=== PATIENT | male | born 1955 | race Caucasian/White ===

== ENCOUNTER → 2020-05-02 10:03 | Outpatient (CLI) | payer OTHER, SELFPAY ==
[2020-05-02 11:09] LABS: COVID19 -Nasal RAPID Negative (Negative)
== END ==
PROVIDERS: PCP Physician Assistant; Visit Provider Physician Assistant
DX: Z20.822 Contact with and (suspected) exposure to COVID-19 (principal)
CPT/HCPCS: 87635

== ENCOUNTER 2020-05-05 08:18 | Day surgery (SDC) | payer OTHER, SELFPAY ==
[2020-05-05] MEDS: PROPARACAINE 0.5% OPHTH SOL 2 DROPS EYE-OP (08:46)
[2020-05-05] MEDS: CATARACT EYE COMPOUND (10 DROPS/SYRINGE) 3 DROPS EYE-OP (08:47)
[2020-05-05 08:55] VITALS: BP 125/72; PULSE 62; RESP 16; TEMP 36.4; O2SAT 99; BMI 27.5
--- NOTE | 2020-05-05 09:01 | PM.PREOP ---
Pre-operative Note Interval Note History & Physical reviewed/Exam performed by Physician: Yes Changes to H&P: No
--- NOTE | 2020-05-05 09:01 | PM.OP.1 ---
Operative Date/Time/Diagnoses Pre-op diagnosis: Nuclear cataract right eye Procedure & Clinicians Procedure: Cataract Surgery Same procedure as scheduled: Yes Surgeon: Oskar Soto Anesthesia Type: MAC +/- and Sedation Operative Notes Procedure in detail: Patient brought to the operating suite. Tetracaine drops placed in the right eye. Patient was prepped and draped in sterile manner. Wire lid speculum was placed in the eye. Betadine drops were placed on the eye. This was irrigated. Lidocaine jelly was placed on the eye. A paracentesis port was created with a side-port blade. 0.1 mL 1% preservative free lidocaine was injected into the anterior chamber. The anterior chamber was deepened with viscoelastic. 2.6 mm keratome was used to create a temporal clear corneal incision. Cystotome and Utrata forceps were used to create continuous tear capsulorrhexis. Balanced salt solution was used to hydro dissect the nucleus. The phacoemulsification handpiece was inserted and the nucleus was removed using the stop and chop technique. The irrigation aspiration handpiece was inserted and the remaining cortex was removed. Anterior chamber was deepened with viscoelastic. An Mascorro ZCB00 intraocular lens with a power of 21.0 was injected into the capsular bag. Irrigation aspiration handpiece was inserted and the remaining viscoelastic was removed. Incision was hydrated with balanced salt solution and found to be leak free with pressure with Weck-Audrey sponges. 0.1 mL Vigamox injected anterior chamber. 0.3 mL Kenalog 10 mg was injected subconjunctivally. Lid speculum was removed. The patient left the operating room in excellent condition. Complications: none Post-operative Condition: stable Disposition: same day surgery
[2020-05-05] MEDS: TRIAMCINOLONE 50 MG/5 ML VIAL INJ (09:21)
[2020-05-05] MEDS: CHONDROIDTIN/SOD HYALURONATE 1.05 ML SYRINGE INTRAOCULA (09:22)
[2020-05-05] MEDS: MOXIFLOXACIN INJ 5 MG/ML VIAL EYE-OP (09:22)
[2020-05-05] MEDS: BALANCED SALT IRRIG SOLN NO.2 500 ML, EPINEPHrine 1 MG IRR (09:22)
[2020-05-05] MEDS: PHENYLEPHRINE/LIDOCAINE VIAL (OR) 0.2 ML EYE-OP (09:22)
[2020-05-05] MEDS: TETRACAINE 0.5% OPHTH DROPS 4 ML 2 DROPS EYE-OP (09:23)
[2020-05-05] MEDS: LIDOCAINE JELLY 2% 5 ML 1 APPLIC TOP (09:23)
[2020-05-05 09:36] VITALS: BP 120/73; PULSE 63; RESP 16; TEMP 36.8; O2SAT 99
[2020-05-05 09:39] VITALS: BP 120/73; PULSE 63; RESP 16; TEMP 36.8; O2SAT 99
== END 2020-05-05 09:50 | disposition home or self-care (01) ==
PROVIDERS: PCP Student in an Organized Health Care Education/Training Program; Referring Provider Ophthalmology; Visit Provider Ophthalmology
PROC: (CPT 66984; principal; 2020-05-05 10:15)
DX: H25.11 Age-related nuclear cataract, right eye (principal)
CPT/HCPCS: 66984; J0171; J2250; J3301

== ENCOUNTER 2023-01-31 16:27 | Emergency (ER) | payer OTHER, SELFPAY ==
[2023-01-31 16:30] VITALS: BP 171/82; PULSE 77; RESP 18; O2SAT 97; BMI 26.9
[2023-01-31] MEDS: LIDOCAINE 2% (GLYDO) 6 ML GEL TOP (17:16)
--- NOTE | 2023-01-31 17:18 | ED.MALEGU ---
HPI - Male Genitourinary General Chief complaint: Urogenital-Male Stated complaint: unable to void Time Seen by Provider: 01/31/23 16:44 Source: patient Mode of arrival: Ambulatory History of Present Illness HPI Narrative: 67-year-old male with history of BPH presents for inability to urinate since 2:00 a.m.. Takes daily Flomax. Patient reporting significant suprapubic fullness and discomfort. Benjamin placed with drainage of 800 cc of clear yellow urine. Patient reported immediately relief after placement of Benjamin. Related Data Home Medications Medication Instructions Recorded Confirmed tamsulosin 0.4 mg capsule (Flomax) 0.4 mg PO BEDTIME 05/05/20 05/05/20 Allergies Allergy/AdvReac Type Severity Reaction Status Date / Time No Known Drug Allergies Allergy Verified 05/05/20 08:44 Review of Systems Review of Systems Narrative: Negative except as noted above Patient History Social History household members: spouse Smoking Status: Never smoker Smoking Status: Never smoker alcohol intake frequency: holidays/special occasions only Substance Use Type: does not use Exam Initial Vital Signs Initial Vital Signs: Vital Signs Pulse Rate 77 01/31/23 16:30 Respiratory Rate 18 01/31/23 16:30 Blood Pressure 171/82 H 01/31/23 16:30 Pulse Oximetry 97 01/31/23 16:30 Oxygen Delivery Method Room Air 01/31/23 16:30 Const: Awake, alert, in distress Eyes: PERRL, EOMI, conjunctiva normal ENT: Atraumatic, dentition normal, mucous membranes moist Cardiac: regular rate, regular rhythm RESP: unlabored, clear bilaterally, no wheezing GI: Suprapubic fullness, no rebound, no guarding MSK: Atraumatic, full range of motion, pulses equal Skin: Warm, Dry, intact, no rashes Neuro: AO x3, CN II-XII grossly intact, moves all extremities Psych: affect normal, mood normal, not suicidal, not homicidal Course Course Course Narrative: Inability to urinate, history of BPH. Benjamin placed with 800 cc of clear yellow urine drained from bladder. Discharged with Benjamin care instructions. Urology referral provided Orders Ordered: Discontinued Medications Lidocaine HCl (Lidocaine 2% (Glydo) 6 Ml Gel) 6 ml TOP NOW ONE Stop: 01/31/23 16:43 Last Admin: 01/31/23 17:16 Dose: 6 ml Documented By: GREGG Vital Signs Vital signs: Vital Signs - 8 hr 01/31/23 16:30 Pulse Rate 77 Respiratory Rate 18 Blood Pressure 171/82 H Pulse Oximetry 97 Oxygen Delivery Method Room Air MDM - Male Genitourinary Differential Diagnosis Differential diagnosis: Likely urinary tract infection, acute retention of urine and inguinal hernia Lab Data Labs: Lab Results 01/31/23 Range/Units 17:04 Urine Color Yellow Urine Appearance Clear Urine pH 5.5 (4.5-8.0) Ur Specific [place] 1.010 (1.000-1.035) Urine Protein Negative (Negative) Urine Glucose (UA) Negative (Negative) g/dL Urine Ketones Negative (NEGATIVE) Urine Occult Blood Trace-intact (Negative) Urine Nitrate Negative (Negative) Urine Bilirubin Negative (NEGATIVE) Urine Urobilinogen 0.2 (0.2) E.U./dL Ur Leukocyte Esterase Negative (NEGATIVE) Urine RBC 1-5/hpf (0-5/HPF) Urine WBC None seen (0-5/HPF) Ur Squamous Epith Cells None seen (0-5/HPF) Urine Bacteria None seen (None) Ur Culture Indicated? Cult not indicated Urine Dip Bedside Urine Glucose Negative Bedside Urine Bilirubin - Negative Bedside Urine Ketone - Negative Urine Specific [place] 1.015 Bedside Urine Occult Blood +/- Bedside Urine Protein - Negative Bedside Urine Urobilinogen - Negative Bedside Urine Nitrite - Negative Bedside Urine Leukocytes - Negative Esterase Discharge Plan Departure Patient Disposition: Home Clinical Impression: Acute retention of urine Instructions: How to Care for Your Benjamin Catheter -- Male, DI for Urinary Retention in Men Prescriptions: No Action tamsulosin [Flomax] 0.4 mg Capsule 0.4 mg PO BEDTIME Referrals: Alisha Irby MD [Primary Care Provider] - Mani Dow MD [Physician] - Stand Alone Forms: Patient Portal/API
[2023-01-31 17:32] LABS: Appearance Urine UA CLEAR; Bilirubin Urine UA NEGATIVE (NEGATIVE); Color Urine UA YELLOW; Glucose Urine UA NEGATIVE (Negative); Ketones Urine UA NEGATIVE (NEGATIVE); Leukocyte Esterase Urine UA NEGATIVE (NEGATIVE); Nitrite Urine UA NEGATIVE (Negative); Occult Blood Urine UA TRACE-INTACT (Negative); Protein Urine UA NEGATIVE (Negative); Urobilinogen Urine UA 0.2 E.U./dL (0.2); pH Urine UA 5.5 (4.5-8.0)
[2023-01-31 17:54] LABS: Bacteria Urine None Seen; Culture Indicated Urine Cult Not Indicated; RBC Urine 1-5/HPF (0-5/HPF); Squamous Epithelial Cell Urine None Seen (0-5/HPF); WBC Urine None Seen (0-5/HPF)
[2023-01-31 18:05] VITALS: BP 161/71; PULSE 88; O2SAT 99
== END 2023-01-31 18:06 | disposition home or self-care (01) ==
PROVIDERS: Emergency Provider Emergency Medicine; PCP Student in an Organized Health Care Education/Training Program
DX: R33.9 Retention of urine, unspecified (principal)
CPT/HCPCS: 51702; 51798; 81001; 81003; 99283

== ENCOUNTER 2023-02-25 08:37 | Emergency (ER) | payer OTHER, SELFPAY ==
[2023-02-25 08:49] VITALS: BP 140/83; PULSE 78; O2SAT 97
[2023-02-25 08:51] VITALS: BP 140/83; PULSE 86; RESP 16; TEMP 36.5; O2SAT 98; BMI 26.2
[2023-02-25 09:00] VITALS: BP 123/60; PULSE 71; O2SAT 98
[2023-02-25] MEDS: LIDOCAINE 2% (GLYDO) 6 ML GEL TOP (09:08)
--- NOTE | 2023-02-25 09:08 | ED.MALEGU ---
HPI - Male Genitourinary General Chief complaint: Urogenital-Male Stated complaint: unable to urinate/Cath removed T-1 Time Seen by Provider: 02/25/23 09:07 Source: patient Mode of arrival: Ambulatory Limitations: no limitations History of Present Illness HPI Narrative: 67-year-old male with history of urinary retention urology yesterday and [place]. Patient states they removed his catheter he had been in for about 30 days, weight about 4 hours he was not told to drink anything so did not have anything to drink in only had 100 mL on return to the office. Patient states he did not void at any point but had some dribbling throughout. He is continued to dribble urine throughout the night but had increasing abdominal/suprapubic pain and fullness. Patient denies fevers or chills. He had a Benjamin catheter placed here is much more comfortable at this time. Denies any back or flank pain. No nausea or vomiting. No diarrhea constipation. He states he is on tamsulosin daily. States he has been told his prostate is quite large. Denies any other issues. Patient has no known drug allergies. Discussed no recent UTIs or other changes when he was evaluated for his prior retention. Did try to get in with Dr. Dow with Urology locally would prefer to follow with them. Related Data Home Medications Medication Instructions Recorded Confirmed tamsulosin 0.4 mg capsule (Flomax) 0.4 mg PO BEDTIME 05/05/20 05/05/20 Allergies Allergy/AdvReac Type Severity Reaction Status Date / Time No Known Drug Allergies Allergy Verified 02/25/23 08:55 Review of Systems Review of Systems ROS Unobtainable: All systems reviewed & are unremarkable except as noted in HPI and below Patient History Social History household members: spouse Smoking Status: Never smoker Smoking Status: Never smoker alcohol intake frequency: holidays/special occasions only Substance Use Type: does not use Exam Narrative Exam Narrative: GENERAL: Alert and oriented x three, well-appearing male moderate distress. Patient much more comfortable after Benjamin catheter placed. HEENT: Head normocephalic, atraumatic, EOMI, pupils reactive, face symmetric, moist mucous membranes NECK: Supple, full range of motion CARDIOVASCULAR: Regular rate and rhythm without murmurs, rubs or gallops. RESPIRATORY: Breath sounds equal bilaterally, no wheezes rales or rhonchi. ABDOMEN: Soft, nontender. Normoactive bowel sounds all 4 quadrants. No guarding or rebound, rigidity, no mass : No CVA tenderness. Male: normal external examination, Benjamin catheter placed by nursing draining clear yellow urine in place, no penile discharge or lesions, testicles non-tender, cremasteric reflex intact, no inguinal hernias noted. EXTREMITIES: Normal range of motion, normal gait. Neurovascularly intact NEUROLOGICAL: Cranial nerves II through XII grossly intact. Moving all extremities SKIN: Warm, dry, no petechiae, no rashes or lesions. Initial Vital Signs Initial Vital Signs: Vital Signs Pulse Rate 78 02/25/23 08:49 Blood Pressure 140/83 02/25/23 08:49 Pulse Oximetry 97 02/25/23 08:49 Course Orders Ordered: ED Orders 02/25/23 09:15 UA Complete [Urinalysis and Microscopic] Stat Discontinued Medications Lidocaine HCl (Lidocaine 2% (Glydo) 6 Ml Gel) 6 ml TOP NOW ONE Stop: 02/25/23 09:07 Last Admin: 02/25/23 09:08 Dose: 6 ml Documented By: RB Vital Signs Vital signs: Vital Signs - 8 hr 02/25/23 09:31 Temperature 98.1 F MDM - Male Genitourinary Lab Data Labs: Lab Results 02/25/23 02/25/23 02/25/23 Range/Units 09:15 09:15 09:15 Urine Color Yellow Urine Appearance Clear Urine pH 7.0 (4.5-8.0) Ur Specific [place] 1.025 (1.000-1.035) Urine Protein Negative (Negative) Urine Glucose (UA) Negative (Negative) g/dL Urine Ketones Negative (NEGATIVE) Urine Occult Blood Negative (Negative) Urine Nitrate Negative (Negative) Urine Bilirubin Negative (NEGATIVE) Urine Urobilinogen 0.2 (0.2) E.U./dL Ur Leukocyte Esterase Negative (NEGATIVE) Urine RBC 0-1/hpf Cancelled (0-5/HPF) Urine WBC 0-1/hpf Cancelled (0-5/HPF) Ur Squamous Epith Cells 0-1 /hpf (0-5/HPF) Ur Transition Epith Cell Ur Renal Epithelial Cell Calcium Oxalate Crystal Uric Acid Crystals Triple Phos Crystals Other Crystals Amorphous Sediment Urine Bacteria (None) Hyaline Casts Granular Casts RBC Casts WBC Casts Other Casts Urine Mucus Urine Trichomonas Urine Yeast Urine Sperm Ur Culture Indicated? Micro UA Comment 02/25/23 02/25/23 02/25/23 Range/Units 09:15 09:15 09:15 Urine Color Urine Appearance Urine pH (4.5-8.0) Ur Specific [place] (1.000-1.035) Urine Protein (Negative) Urine Glucose (UA) (Negative) g/dL Urine Ketones (NEGATIVE) Urine Occult Blood (Negative) Urine Nitrate (Negative) Urine Bilirubin (NEGATIVE) Urine Urobilinogen (0.2) E.U./dL Ur Leukocyte Esterase (NEGATIVE) Urine RBC (0-5/HPF) Urine WBC (0-5/HPF) Ur Squamous Epith Cells Cancelled (0-5/HPF) Ur Transition Epith Cell Cancelled Ur Renal Epithelial Cell Cancelled Calcium Oxalate Crystal Cancelled Uric Acid Crystals Cancelled Triple Phos Crystals Cancelled Other Crystals Cancelled Amorphous Sediment 3+ Cancelled Urine Bacteria None seen Cancelled (None) Hyaline Casts Cancelled Granular Casts Cancelled RBC Casts Cancelled WBC Casts Cancelled Other Casts Cancelled Urine Mucus Cancelled Urine Trichomonas Cancelled Urine Yeast Cancelled Urine Sperm Cancelled Ur Culture Indicated? Cult not indicated Micro UA Comment 02/25/23 Range/Units 09:15 Urine Color Urine Appearance Urine pH (4.5-8.0) Ur Specific [place] (1.000-1.035) Urine Protein (Negative) Urine Glucose (UA) (Negative) g/dL Urine Ketones (NEGATIVE) Urine Occult Blood (Negative) Urine Nitrate (Negative) Urine Bilirubin (NEGATIVE) Urine Urobilinogen (0.2) E.U./dL Ur Leukocyte Esterase (NEGATIVE) Urine RBC (0-5/HPF) Urine WBC (0-5/HPF) Ur Squamous Epith Cells (0-5/HPF) Ur Transition Epith Cell Ur Renal Epithelial Cell Calcium Oxalate Crystal Uric Acid Crystals Triple Phos Crystals Other Crystals Amorphous Sediment Urine Bacteria (None) Hyaline Casts Granular Casts RBC Casts WBC Casts Other Casts Urine Mucus Urine Trichomonas Urine Yeast Urine Sperm Ur Culture Indicated? Cancelled Micro UA Comment Cancelled Urine Dip Bedside Urine Glucose Negative Bedside Urine Bilirubin - Negative Bedside Urine Ketone - Negative Urine Specific [place] 1.015 Bedside Urine Occult Blood +/- Bedside Urine pH 6.5 Bedside Urine Protein - Negative Bedside Urine Urobilinogen - Negative Bedside Urine Nitrite - Negative Bedside Urine Leukocytes - Negative Esterase MDM Narrative Medical decision making narrative: 67-year-old male with acute on chronic urinary retention with no BPH. Had unsuccessful voiding trial yesterday been dribbling since then with increasing abdominal discomfort. Patient had Benjamin catheter placed here immediately had urine out and feels much improved. 500+mL immediately. Urine appears clear but we will send for evaluation. Blood is present but likely secondary to catheter placement. Discussed with patient will hold off on any antibiotics and only start if patient has a having positive culture. Discharge Plan Departure Patient Disposition: Home Clinical Impression: Acute on chronic urinary retention Instructions: DI for Urinary Retention in Men Activity Restrictions/Additional Instructions: Follow-up with Urology, referral is included for Dr. Dow. Please call their office Monday morning. If you can not get in with Urology locally there is also options available at [facility] and [facility]. Continue to take your tamsulosin daily. Make sure you are having regular soft bowel movements and no constipation. You are constipated take a stool softener such as Colace or Dulcolax and drink plenty of fluids. Please return for fevers new or worsening abdominal back or flank pain, vomiting, difficulty with bowel movements, lightheadedness or passing out or other new or concerning changes. Prescriptions: No Action tamsulosin [Flomax] 0.4 mg Capsule 0.4 mg PO BEDTIME Referrals: Mani Dow MD [Physician] - Kay Martin MD [Primary Care Provider] - Stand Alone Forms: Patient Portal/API
[2023-02-25 09:31] VITALS: TEMP 36.7
[2023-02-25 09:31] LABS: Appearance Urine UA CLEAR; Bilirubin Urine UA NEGATIVE (NEGATIVE); Color Urine UA YELLOW; Glucose Urine UA NEGATIVE (Negative); Ketones Urine UA NEGATIVE (NEGATIVE); Leukocyte Esterase Urine UA NEGATIVE (NEGATIVE); Nitrite Urine UA NEGATIVE (Negative); Occult Blood Urine UA NEGATIVE (Negative); Protein Urine UA NEGATIVE (Negative); Specific Gravity Urine UA 1.025 (1.000-1.035); Urobilinogen Urine UA 0.2 E.U./dL (0.2)
[2023-02-25 09:38] LABS: Amorphous Sediment Urine 3+; Bacteria Urine None Seen; Culture Indicated Urine Cult Not Indicated; RBC Urine 0-1/HPF (0-5/HPF); Squamous Epithelial Cell Urine 0-1 /HPF (0-5/HPF); WBC Urine 0-1/HPF (0-5/HPF)
== END 2023-02-25 09:32 | disposition home or self-care (01) ==
PROVIDERS: Emergency Provider Emergency Medicine; PCP Family Medicine
DX: R33.9 Retention of urine, unspecified (principal)
CPT/HCPCS: 51702; 51798; 81001; 81003; 99283

== ENCOUNTER → 2023-03-21 15:50 | Outpatient (CLI) | payer OTHER, SELFPAY | PROVIDERS: PCP Family Medicine; Visit Provider Urology | DX: R34 Anuria and oliguria (principal) | CPT/HCPCS: 87086 ==

== ENCOUNTER → 2023-04-11 12:50 | Outpatient (CLI) | payer OTHER, SELFPAY | PROVIDERS: PCP Family Medicine; Visit Provider Urology | DX: R39.9 Unspecified symptoms and signs involving the genitourinary system (principal) | CPT/HCPCS: 87077; 87086; 87186 ==

== ENCOUNTER → 2023-05-11 13:53 | Outpatient (CLI) | payer OTHER, SELFPAY | PROVIDERS: PCP Family Medicine; Visit Provider Urology | DX: N39.0 Urinary tract infection, site not specified (principal); R33.8 Other retention of urine; R39.9 Unspecified symptoms and signs involving the genitourinary system; Z97.8 Presence of other specified devices | CPT/HCPCS: 51702; 87086 ==

== ENCOUNTER → 2023-06-08 15:09 | Outpatient (CLI) | payer OTHER, SELFPAY | PROVIDERS: PCP Family Medicine; Visit Provider Urology | DX: N39.0 Urinary tract infection, site not specified (principal); N32.0 Bladder-neck obstruction; R33.9 Retention of urine, unspecified; R39.9 Unspecified symptoms and signs involving the genitourinary system; Z97.8 Presence of other specified devices; Z84.2 Family history of other diseases of the genitourinary system | CPT/HCPCS: 51702; 87077; 87086; 87186 ==

== ENCOUNTER → 2023-06-23 15:50 | Outpatient (CLI) | payer OTHER, SELFPAY ==
[2023-06-23 15:56] LABS: Appearance Urine UA CLEAR; Bilirubin Urine UA NEGATIVE (NEGATIVE); Color Urine UA YELLOW; Glucose Urine UA NEGATIVE (Negative); Ketones Urine UA NEGATIVE (NEGATIVE); Leukocyte Esterase Urine UA NEGATIVE (NEGATIVE); Nitrite Urine UA NEGATIVE (Negative); Occult Blood Urine UA NEGATIVE (Negative); Protein Urine UA NEGATIVE (Negative); Specific Gravity Urine UA <=1.005 (1.000-1.035); Urobilinogen Urine UA 0.2 E.U./dL (0.2); pH Urine UA 6.5 (4.5-8.0)
[2023-06-23 16:15] LABS: Bacteria Urine None Seen; Culture Indicated Urine Cult Not Indicated; RBC Urine None Seen (0-5/HPF); Squamous Epithelial Cell Urine None Seen (0-5/HPF); Urine Volume 10mL (spun); WBC Urine None Seen (0-5/HPF)
== END ==
PROVIDERS: PCP Family Medicine; Visit Provider Urology
DX: N39.0 Urinary tract infection, site not specified (principal); R33.9 Retention of urine, unspecified; R39.9 Unspecified symptoms and signs involving the genitourinary system
CPT/HCPCS: 81001

== ENCOUNTER → 2023-07-07 10:58 | Outpatient (CLI) | payer OTHER, SELFPAY | PROVIDERS: PCP Family Medicine; Visit Provider Urology | DX: N40.1 Benign prostatic hyperplasia with lower urinary tract symptoms (principal); R33.9 Retention of urine, unspecified; N39.0 Urinary tract infection, site not specified; Z97.8 Presence of other specified devices; Z84.2 Family history of other diseases of the genitourinary system | CPT/HCPCS: 51702; 87077; 87086; 87147; 87186 ==

== ENCOUNTER 2023-07-20 09:27 | Emergency (ER) | payer OTHER, SELFPAY ==
[2023-07-20 10:07] VITALS: BP 156/82; PULSE 82; RESP 18; TEMP 36.9; O2SAT 98; BMI 27.5
--- NOTE | 2023-07-20 10:38 | ED.GENADULT ---
HPI - General Adult General Chief complaint: Urogenital-Male Stated complaint: cath stopped working t-1, pt in pain Time Seen by Provider: 07/20/23 10:27 Source: patient Mode of arrival: Ambulatory History of Present Illness HPI narrative: Patient is a 68-year-old male. Has a urinary catheter in place for the past several months secondary to an enlarged prostate. He was scheduled to have surgery in the next couple weeks. He has a catheter in place that was placed 2 weeks ago. He states the catheter stops draining yesterday. Is having quite a bit of abdominal distention. Related Data Home Medications Medication Instructions Recorded Confirmed tamsulosin 0.4 mg capsule (Flomax) 0.8 mg PO BEDTIME 03/21/23 06/23/23 Allergies Allergy/AdvReac Type Severity Reaction Status Date / Time No Known Drug Allergies Allergy Verified 07/20/23 10:07 Review of Systems Constitutional Constitutional: Reports system reviewed and no additional complaints, except as documented Gastrointestinal Gastrointestinal: Reports system reviewed and no additional complaints, except as documented Genitourinary Genitourinary: Reports system reviewed and no additional complaints, except as documented Patient History Medical History BPH loc w urin obs/LUTS Urinary retention Urinary tract infection Benjamin catheter in place Family history of prostate problems Bladder outlet obstruction Benign prostatic hyperplasia Lower urinary tract symptoms Social History household members: spouse Smoking Status: Never smoker alcohol intake: current Smoking Status: Never smoker alcohol intake frequency: holidays/special occasions only Substance Use Type: does not use Exam Initial Vital Signs Initial Vital Signs: Vital Signs Temperature 98.4 F 07/20/23 10:07 Pulse Rate 82 07/20/23 10:07 Respiratory Rate 18 07/20/23 10:07 Blood Pressure 156/82 H 07/20/23 10:07 Pulse Oximetry 98 07/20/23 10:07 Oxygen Delivery Method Room Air 07/20/23 10:07 GI Palpation: soft External: normal external exam and circumcised Course Vital Signs Vital signs: Vital Signs - 8 hr 07/20/23 10:07 Temperature 98.4 F Pulse Rate 82 Respiratory Rate 18 Blood Pressure 156/82 H Pulse Oximetry 98 Oxygen Delivery Method Room Air Medical Decision Making MDM Narrative Medical decision making narrative: By the time I evaluated the patient he had had his catheter replaced. He drained approximately 1 L of urine. Stated that he was feeling much better. Will discharge patient home with instructions to follow-up with urology Discharge Plan Departure Patient Disposition: Home Clinical Impression: Complication of Benjamin catheter Instructions: How to Care for Your Benjamin Catheter -- Male Activity Restrictions/Additional Instructions: Keep all of your scheduled follow-up appointments with Urology. Return to the emergency department for new or worsening symptoms Prescriptions: No Action tamsulosin [Flomax] 0.4 mg capsule 0.8 mg PO BEDTIME Referrals: Kay Martin MD [Primary Care Provider] - Stand Alone Forms: Patient Portal/API
== END 2023-07-20 10:52 | disposition home or self-care (01) ==
PROVIDERS: Emergency Provider Emergency Medicine; PCP Family Medicine
DX: T83.098A Other mechanical complication of other urinary catheter, initial encounter (principal)
CPT/HCPCS: 51702; 99281; 99283

== ENCOUNTER → 2023-07-26 08:15 | Outpatient (CLI) | payer OTHER, SELFPAY | PROVIDERS: PCP Family Medicine; Visit Provider Urology | DX: N40.1 Benign prostatic hyperplasia with lower urinary tract symptoms (principal); R33.9 Retention of urine, unspecified; N39.0 Urinary tract infection, site not specified | CPT/HCPCS: 87077; 87086; 87147; 87186 ==

== ENCOUNTER 2023-07-31 04:38 | Emergency (ER) | payer OTHER, SELFPAY ==
[2023-07-31 04:47] VITALS: BP 152/70; PULSE 74; RESP 18; TEMP 36.4; O2SAT 98; BMI 27.5
--- NOTE | 2023-07-31 04:54 | ED.MALEGU ---
HPI - Male Genitourinary General Chief complaint: Urogenital-Male Stated complaint: catheter not working Time Seen by Provider: 07/31/23 04:39 Source: patient Mode of arrival: Ambulatory History of Present Illness HPI Narrative: 68-year-old male with history of BPH presents for blocked Benjamin catheter. Patient states that he has burning with urination and seems to be urinating around the catheter. He is scheduled for surgery tomorrow for his BPH with Dr. Dow. Catheter has been poorly functional since yesterday morning. Related Data Home Medications Medication Instructions Recorded Confirmed tamsulosin 0.4 mg capsule (Flomax) 0.8 mg PO BEDTIME 03/21/23 07/26/23 Previous Rx's Medication Instructions Recorded ciprofloxacin HCl 500 mg tablet 500 mg PO Q12H #14 tabs 07/31/23 Allergies Allergy/AdvReac Type Severity Reaction Status Date / Time No Known Drug Allergies Allergy Verified 07/20/23 10:07 Patient History Medical History BPH loc w urin obs/LUTS Urinary retention Urinary tract infection Benjamin catheter in place Family history of prostate problems Bladder outlet obstruction Benign prostatic hyperplasia Lower urinary tract symptoms Social History household members: spouse Smoking Status: Never smoker alcohol intake: current Smoking Status: Never smoker alcohol intake frequency: holidays/special occasions only Substance Use Type: does not use Exam Initial Vital Signs Initial Vital Signs: Vital Signs Temperature 97.6 F 07/31/23 04:47 Pulse Rate 74 07/31/23 04:47 Respiratory Rate 18 07/31/23 04:47 Blood Pressure 152/70 H 07/31/23 04:47 Pulse Oximetry 98 07/31/23 04:47 Oxygen Delivery Method Room Air 07/31/23 04:47 Course Orders Ordered: ED Orders 07/31/23 05:15 UA Complete [Urinalysis and Microscopic] Stat Urine Culture Stat Vital Signs Vital signs: Vital Signs - 8 hr 07/31/23 04:47 Temperature 97.6 F Pulse Rate 74 Respiratory Rate 18 Blood Pressure 152/70 H Pulse Oximetry 98 Oxygen Delivery Method Room Air MDM - Male Genitourinary Lab Data Labs: Lab Results 07/31/23 Range/Units 05:15 Urine Color Yellow Urine Appearance Sl cloudy Urine pH 6.0 (4.5-8.0) Ur Specific [place] 1.010 (1.000-1.035) Urine Protein Negative (Negative) Urine Glucose (UA) Negative (Negative) g/dL Urine Ketones Negative (NEGATIVE) Urine Occult Blood 3+ H (Negative) Urine Nitrate Positive H (Negative) Urine Bilirubin Negative (NEGATIVE) Urine Urobilinogen 0.2 (0.2) E.U./dL Ur Leukocyte Esterase 3+ H (NEGATIVE) Urine RBC 30-100/hpf H (0-5/HPF) Urine WBC 30-100/hpf H (0-5/HPF) Ur Squamous Epith Cells 0-1 /hpf (0-5/HPF) Urine Bacteria Many (>30) H (None) Ur Culture Indicated? Specimen cultured Vol Urine Centrifuged 10ml (spun) MDM Narrative Medical decision making narrative: Blocked Benjamin catheter. Patient also complaining of significant burning around the catheter with urine leaking. Benjamin catheter replaced, drainage of approximately 700 cc of yellow urine. Urinalysis positive for nitrites, leukocyte esterase, many WBCs, many bacteria. We will treat as infection with ciprofloxacin. First dose given in emergency department and prescription sent to pharmacy of choice. Patient is scheduled for aqua ablation of his prostate tomorrow, he was advised to call his urologist office for additional recommendations as well as to notify them of his UTI. Discharge Plan Departure Patient Disposition: Home Clinical Impression: Urinary tract infection, Complication, blocked Benjamin catheter Instructions: How to Care for Your Benjamin Catheter -- Male, DI for Urinary Tract Infection (UTI) Activity Restrictions/Additional Instructions: Take the antibiotics as prescribed. Call Dr. Espinosa's office to see what they would like you to do for your urinary tract infection. Prescriptions: New ciprofloxacin HCl 500 mg tablet 500 mg PO Q12H Qty: 14 0RF No Action tamsulosin [Flomax] 0.4 mg capsule 0.8 mg PO BEDTIME Referrals: Kay Martin MD [Primary Care Provider] - Stand Alone Forms: Patient Portal/API
--- NOTE | 2023-07-31 05:06 | PC.NURSE ---
pt states his catheter has not been draining much all night, he has been urinating around the catheter. attempted to irrigate the catheter without success, catheter removed and new catheter placed without difficulty,
[2023-07-31 05:21] LABS: Bilirubin Urine UA NEGATIVE (NEGATIVE); Color Urine UA YELLOW; Glucose Urine UA NEGATIVE (Negative); Ketones Urine UA NEGATIVE (NEGATIVE); Leukocyte Esterase Urine UA 3+ (NEGATIVE); Nitrite Urine UA POSITIVE (Negative); Occult Blood Urine UA 3+ (Negative); Protein Urine UA NEGATIVE (Negative); Urobilinogen Urine UA 0.2 E.U./dL (0.2)
[2023-07-31 05:24] LABS: Appearance Urine UA SL CLOUDY
[2023-07-31 05:29] LABS: Bacteria Urine Many (>30); RBC Urine 30-100/HPF (0-5/HPF); Squamous Epithelial Cell Urine 0-1 /HPF (0-5/HPF); Urine Volume 10mL (spun); WBC Urine 30-100/HPF (0-5/HPF)
[2023-07-31 05:30] LABS: Culture Indicated Urine Specimen Cultured
[2023-07-31] MEDS: CIPROFLOXACIN 250 MG TABLET 500 MG PO (05:36)
== END 2023-07-31 05:40 | disposition home or self-care (01) ==
PROVIDERS: Emergency Provider Emergency Medicine; PCP Family Medicine
DX: N39.0 Urinary tract infection, site not specified (principal); T83.091A Other mechanical complication of indwelling urethral catheter, initial encounter
CPT/HCPCS: 81001; 87077; 87086; 87147; 87186; 99283

== ENCOUNTER 2023-08-15 07:57 | Day surgery (SDC) | payer OTHER, SELFPAY ==
[2023-06-28 10:19] VITALS: BMI 27.5
[2023-08-15] VITALS (9 sets, daily range): BP systolic 118–138; BP diastolic 62–78; PULSE 61–74; RESP 11–17; TEMP 36.2–36.6; O2SAT 96–100; BMI 27.5
--- NOTE | 2023-08-15 | PATH_ITS ---
[facility] Accession Number: [id number] No. of containers..01 Tissue . 01 Material submitted: . prostate - PROSTATE CHIPS . 01 Diagnosis: PROSTATE CHIPS (7 GRAMS), TRANSURETHRAL RESECTION: Benign prostatic hyperplasia. No evidence of malignancy. [facility] 08/22/2023 1041 Local . 01 Electronically signed: . Katherin Estrada MD, Pathologist NPI- [id number] . 01 Gross description: . Received in formalin with two identifiers and prostate chips, are multiple uriarte rubbery soft tissue fragments admixed with hemorrhagic material weighing 7 grams and aggregating to 4.6 x 3.9 x 1.7 cm. No distinct lesions are identified. The specimen is submitted entirely in cassettes A1-A6. ([id number]) /MRV 08/16/2023 1926 Local . 01 Pathologist provided ICD-10: N40.1 . 01 CPT . 751562 Specimen Comment: A courtesy copy of this report has been sent to [phone] Performed at: 01 [facility] [address] [place] [address] [address], [place], [place] [id number] MD Zev Moulton MD Phone: [phone]
[2023-08-15] MEDS: LACTATED RINGERS 1,000 ML 42 ML IV (08:40)
[2023-08-15] MEDS: ACETAMINOPHEN 325 MG TABLET 975 MG PO (09:20)
--- NOTE | 2023-08-15 09:48 | PM.PREOP ---
Pre-operative Note COVID-19 COVID-19 status: Not tested Interval Note History & Physical reviewed/Exam performed by Physician: Yes Changes to H&P: No
[2023-08-15] MEDS: CEFAZOLIN 2 GM/100 ML PREMIX 100 ML IV (09:58)
--- NOTE | 2023-08-15 10:17 | SUR.OPER ---
Lithotomy on padded OR bed, head on pillow, arms secured on padded arm boards at <90 degrees abduction. Legs secured in padded yellow fins stirrups.
--- NOTE | 2023-08-15 11:44 | PM.OP.1 ---
Procedure & Clinicians Procedure: 1. Aquablation water jet resection of prostate 2. Prostate ultrasound 3. Transurethral resection of prostate and cauterization Same procedure as scheduled: Yes Indications: This is a 68-year-old male who presented with complaints of urinary retention. He was evaluated with cystoscopy and multiple voiding trials which he failed and remained in retention. Thus were unable to do a uroflow and because of the Benjamin catheter in his national prostate symptom Score is would be invalid. Again he is in retention his prostate was measured at 90 g by prostate ultrasound. Patient reports history of normal PSAs and we have been unable to get a current PSA because of the continue his Benjamin catheter needed for his urinary retention. He presents at this time for Aquablation to relieve his benign prostatic hyperplasia and lower urinary tract symptoms/retention. Surgeon: Mani Dow Click Yes if Unassisted: Yes Anesthesia Type: General Operative Notes Findings: Findings: Urethral meatus is normal urethra is normal along its length sphincter as well coapted. The prostate exhibits trilobar obstruction with bulging into the bladder severe obstruction. Bladder exhibits severe trabeculation cellules the ureteral orifices in normal position with efflux and at the end the procedure they were intact and unaffected. The patient's verumontanum was also preserved at the end of the procedure. Patient's prostate had been measured at 90 g. At the end of the procedure the prostatic fossa was widely patent hemostasis appeared to be good and all chips appeared to be evacuated from the bladder. Total Aquablation time 8 minutes for 2 passes. A 24 Bangl[place]hi three-way hematuria catheter was placed at the end of the case with 45 cc in the balloon and just a very gentle is of traction resulting in lightly pink urine. Closure Type: not applicable Specimen(s): other (Prostate chips) Applied: catheter ([address] hematuria catheter with 45 cc in the balloon.) Estimated Blood Loss (mL): 175 Blood products transfused: none Procedure in detail: Procedure in detail: After informed consent was obtained, the patient was identified and brought to the operating room where he is placed in a supine position on the table and anesthesia was induced and maintained. Assuring an adequate level of anesthesia the patient was transitioned to the lithotomy position. At this point he was prepped. At this point ensuring an adequate level of anesthesia, time-out, after administration of antibiotics 60 cc of ultrasound gel was inserted in the rectum followed by the ultrasound probe which was attached to the ultrasound stepper which was attached to the articulating arm which was secured to the bed. The ultrasound probe was aligned and confirmation made that the prostate was centered and aligned in both the transverse and sagittal views. The bladder neck verumontanum central and transition zones were identified. At this point the patient was draped in his sterile fashion and the 24 [place]hi aqua beam handpiece was inserted through the urethra prostate and into the bladder under direct vision. Cystoscopy was performed. The scope was then backed up to the level of the external sphincter which was noted on ultrasound the level of the verumontanum which was also marked in noted on ultrasound. The aqua beam handpiece was then secured to the handpiece articulating arm which was secured to the bed. Again alignment of the aqua beam handpiece and ultrasound probe was confirmed and that they were colinear. They were also parallel then using the ultrasound it was also ensured that the aqua beam was centered within the prostate. Compression on the ultrasound probe was then performed and all anatomy was clearly seen. Again the cystoscope was retracted via the cradle and to visualize the external sphincter and verumontanum and their position once again confirmed. The cystoscope was then positioned between the external sphincter just proximal to it and the verumontanum. Confirmation was once again made that the handpiece and the ultrasound probe were aligned. Horizontal alignment of the handpiece water jet was then performed. With the jet at the 3 and 9 o'clock position. The Aquablation treatment zones were then planned using real-time ultrasound and truss to visualize the contour of the prostate the transition zone the capsule the depth of resection and the radial angles were set in the transverse view. In the sagittal view the aqua beam nozzle was identified and its position registered in the software. The bladder neck and verumontanum defining the length of resection were set and identified. The resection contours were then marked and confirmed. With the treatment plan in place the Aquablation treatment was then started following the resection contour confirmed in real time by ultrasound guidance. For the 1st pass the time was approximately 4 minutes. A 2nd pass was noted adjustments made in the contour plan and the treatments done. Again the butterfly cut at the verumontanum for sexual preservation was performed. Once this was complete the cystoscope was advanced to the end of the aqua beam handpiece and the hand piece brought out under direct vision. The resectoscope was then inserted under direct vision and the clot and bladder were irrigated with the Ellik evacuator. Then at the bladder neck going from the 3 to 9 o'clock position some of the fluffy tissue was removed and bleeding points controlled with the electrocautery. Anteriorly at the bladder neck there were bleeding points which were also controlled. At the level of the verumontanum posteriorly there was a flap remaining prostate tissue which was resected. Anteriorly at the level of the verumontanum there were a couple of bleeding sites which were cauterized. With the tissue resected the Ellik evacuator was once again employed to evacuate clot and prostate chips. Again was visualized and all points of bleeding at the bladder neck and arterial bleeding was controlled with the electrocautery. The ureteral orifices were once again visualized and they were intact and unharmed all chips had been evacuated from the bladder the vera was again intact the bladder was left full the scope was removed and the 24 [place]hi three-way hematuria catheter was inserted with the aid of a catheter guide. The bladder was once again irrigated the effluent was light pink catheter was placed the gentle traction again there were 45 cc in the balloon this was sterile water. At this point the patient was awakened having tolerated the procedure well there were no complications. The patient was transferred to the postanesthesia care unit for recovery with the three-way catheter hooked to continuous bladder irrigation and again on gentle traction Post-operative Condition: stable Disposition: PACU Plan for aftercare: Patient will be observed in the postanesthesia care unit and if he urine remains in acceptable color will be discharged to home from the PACU if not he will remain as an outpatient likely to be discharged within 23 hours.
[2023-08-15] MEDS: PHENAZOPYRIDINE 100 MG TABLET 200 MG PO (12:10)
[2023-08-15] MEDS: OXYBUTYNIN 5 MG TABLET PO (12:10)
[2023-08-15] MEDS: OXYCODONE IR 5 MG TABLET PO (13:47)
--- NOTE | 2023-08-15 14:20 | SUR.PHASEII ---
irrigation supplies with instructions given. Pt and verbalized understanding. catheter plugged at irrigation port. cath secure replaced and repositioned per pt's request for comfort.
--- NOTE | 2023-08-15 14:25 | SUR.PHASEII ---
1220 - Dr Dow visits and monitors output. urine cont's to drain grade 2 - grade [address] Dow visits again and ok's discharge.
== END 2023-08-15 13:48 | disposition home or self-care (01) ==
PROVIDERS: PCP Family Medicine; Referring Provider Urology; Visit Provider Urology
PROC: 0VT08ZZ Resection of Prostate, Via Natural or Artificial Opening Endoscopic (ICD-10-PCS; CPT 0421T; principal; 2023-08-15 09:15)
DX: N40.1 Benign prostatic hyperplasia with lower urinary tract symptoms (principal); R33.9 Retention of urine, unspecified
CPT/HCPCS: 0421T; C2596; J0690; J1100; J2405; J2704; J3010

== ENCOUNTER → 2023-08-24 08:13 | Outpatient (CLI) | payer OTHER, SELFPAY | PROVIDERS: PCP Family Medicine; Visit Provider Urology | DX: N40.1 Benign prostatic hyperplasia with lower urinary tract symptoms (principal); R39.9 Unspecified symptoms and signs involving the genitourinary system; R33.9 Retention of urine, unspecified | CPT/HCPCS: 87086 ==

== ENCOUNTER → 2023-08-31 14:13 | Outpatient (CLI) | payer OTHER, SELFPAY | PROVIDERS: PCP Family Medicine; Visit Provider Urology | DX: R33.9 Retention of urine, unspecified (principal) | CPT/HCPCS: 87086 ==

== ENCOUNTER → 2023-09-15 08:05 | Outpatient (CLI) | payer OTHER, SELFPAY | PROVIDERS: PCP Family Medicine; Visit Provider Urology | DX: N40.1 Benign prostatic hyperplasia with lower urinary tract symptoms (principal) | CPT/HCPCS: 87086 ==

== ENCOUNTER → 2023-10-04 09:29 | Outpatient (CLI) | payer OTHER, SELFPAY | PROVIDERS: PCP Family Medicine; Visit Provider Urology | DX: N40.1 Benign prostatic hyperplasia with lower urinary tract symptoms (principal) | CPT/HCPCS: 87086 ==

== ENCOUNTER → 2025-03-24 11:10 | Outpatient (CLI) | payer OTHER, SELFPAY | PROVIDERS: PCP Family Medicine; Referring Provider Urology; Visit Provider Urology | DX: Z12.5 Encounter for screening for malignant neoplasm of prostate (principal) | CPT/HCPCS: 36415; G0103 ==